=== PATIENT | male | born 1955 | race Caucasian/White ===

== ENCOUNTER 2018-12-05 18:00 | Emergency (ER) | payer OTHER, SELFPAY ==
[2018-12-05] VITALS (7 sets, daily range): BP systolic 134–165; BP diastolic 84–96; PULSE 56–78; RESP 14–25; TEMP 37.1; O2SAT 94–100
--- NOTE | 2018-12-05 18:29 | DI.RAD.S_ITS ---
PROCEDURE: XR CHEST 2V INDICATIONS: Irregular heart rate TECHNIQUE: 2 views of the chest were acquired. COMPARISON: None. FINDINGS: Surgical changes and devices: None. Lungs and pleura: Lungs are clear. No pleural effusions or pneumothorax. Mediastinum: Mediastinal contours are normal. Heart size is normal. Bones and chest wall: No suspicious bony abnormalities. Soft tissues appear unremarkable. IMPRESSION: Normal chest. Dictated by: Maggie Richard M.D. on 12/05/2018 at 19:59 Approved by: Maggie Richard M.D. on 12/05/2018 at 19:59
--- NOTE | 2018-12-05 19:05 | ED_ITS ---
HPI - Syncope General Chief Complaint: Syncope Stated Complaint: ABNORMAL EKG/SCIATIC NERVE PAIN Time Seen by Provider: 12/05/18 19:04 Source: patient Mode of arrival: ambulatory Limitations: no limitations History of Present Illness HPI narrative: Patient is a 63-year-old male who states that he has had a ?unexplained illness ?that he has had off and on over the past several years. He states that this illness causes him to lose his appetite and not want to eat. He went into a long description of how he has not eaten much over the past several days and weeks because he does not have any appetite. He states he has had miss work the past couple days because of not feeling well and not eating. He states that he went to work today when he was putting a tarp on a truck he had a sudden onset of fatigue. He did not lose consciousness. He was able to get off the truck without falling. He states when he got to the ground he became so fatigued that he could not get up. EMS was called. He stated that flora watson did an EKG and told him that he potentially had a heart attack in the past and that the left side of his heart was abnormal. He was not brought to the emergency department. He was told that if his symptoms worsened he needed to come to the ER for evaluation. He stated that since he lives on [address] he would come to the emergency department before going home. He brought a copy of the EKG that was done by EMS which shows LVH and Q-waves in lead V5 and V6 Related Data Home Medications Medication Instructions Recorded Confirmed famotidine [Pepcid] 40 mg PO #0 03/23/13 loperamide [Imodium A-D] 1 mg PO PRN PRN #0 07/31/16 Previous Rx's Medication Instructions Recorded diphenoxylate-atropine 1 tab PO Q4HP PRN #14 tab 07/31/16 ondansetron [Zofran ODT] 4 mg SUBLINGUAL Q6HP PRN #20 odt 07/31/16 meloxicam [Mobic] 15 mg PO DAILY #30 tab 12/05/18 Allergies Allergy/AdvReac Type Severity Reaction Status Date / Time amoxicillin [AMOXICILLIN] Allergy Intermediate Unverified 12/25/17 13:05 Penicillins [PENICILLINS] Allergy Intermediate Unverified 12/25/17 13:05 Review of Systems Constitutional Reports fatigue, Denies fever(s), Reports lethargy, Reports malaise, Reports poor appetite, Reports weakness and Reports weight loss ENT Ears, Nose, Mouth, and Throat: Denies vertigo and Denies dizziness Cardiovascular Denies chest pain, Denies palpitations and Denies dyspnea Respiratory Denies dyspnea and Denies wheezing Gastrointestinal Gastrointestinal: Denies change in stool character, Denies cramping, Denies diarrhea, Denies nausea and Denies vomiting Genitourinary Denies dysuria Musculoskeletal Reports back pain and Reports radiating pain into limb Integumentary/Breasts Denies lesions and Denies rash Neurologic Denies confusion, Denies vertigo, Denies dizziness, Reports radicular pain, Reports paresthesias and Reports weakness Psychiatric Denies confusion Endocrine Reports fatigue and Denies palpitations Hematologic/Lymphatic Denies easy bleeding and Denies easy bruising Allergic/Immunologic Denies wheezing PFSH Medical History Gastroesophageal reflux disease (Acute) Sciatica (Acute) Social History Smoking Status: Never smoker Social History Smoking Status: Never smoker Exam Initial Vital Signs Initial Vital Signs: Vital Signs Temperature 98.8 F 12/05/18 18:00 Pulse Rate 73 12/05/18 18:00 Respiratory Rate 16 12/05/18 18:00 Blood Pressure 165/96 H 12/05/18 18:00 Pulse Oximetry 98 12/05/18 18:00 Const General: cooperative, healthy appearing, comfortable, well developed, well groomed and No acute distress Orientation: alert, awake and oriented x3 HENMT Head: normal to inspection and normocephalic Resp Effort & Inspection: normal respiratory effort Auscultation: clear to auscultation bilaterally Cardio Rate: regular rate Rhythm: regular rhythm Pulses: radial pulses present GI Inspection: non-distended Palpation: soft, No firm and No tender Skin Lesions: no lesions Rashes: no rashes Neuro General: alert, awake and oriented x3 Cognition: normal cognition Speech: speech normal Gait: normal gait Motor: muscle tone normal throughout Sensory Exam: no sensory deficits noted Extrem General: normal to inspection and capillary refill normal Psych Appearance: grossly normal and well kempt Scores GCS [place] coma scale eye opening: Spontaneous Michael coma scale verbal response: Orientated [place] coma scale motor response: Obey commands Michael coma scale total score: 15 Course Orders Ordered: ED Orders 12/05/18 20:33 B Type Natriuretic Peptide Stat Complete Blood Count AUTO DIFF Stat Comprehensive Metabolic Panel Stat Lipase Stat Partial Thromboplastin Time Stat Prothrombin Time INR Stat Discontinued Medications Hydrocodone Bitart/Acetaminophen (Vicodin Prepack) 1 bottle MISC SEEINSTR ONE Stop: 12/05/18 21:50 Last Admin: 12/05/18 22:00 Dose: 1 bottle Ketorolac Tromethamine (Toradol) 30 mg IV NOW ONE Stop: 12/05/18 19:19 Last Admin: 12/05/18 20:28 Dose: 30 mg Vital Signs - 8 hr 12/05/18 20:30 12/05/18 21:00 12/05/18 21:45 Pulse Rate 63 56 L 61 Respiratory Rate 17 14 18 Blood Pressure Blood Pressure [Right Arm] 143/92 H 134/84 162/88 H Pulse Oximetry 100 94 99 12/05/18 21:55 Pulse Rate 67 Respiratory Rate 25 H Blood Pressure 162/88 H Blood Pressure [Right Arm] Pulse Oximetry 100 MDM - Syncope Lab Data Attestation: I reviewed the patient's lab results. Result diagrams: 12/05/18 20:33 12/05/18 20:33 Lab Results 12/05/18 12/05/18 12/05/18 Range/Units 20:33 20:33 20:33 WBC 11.1 H (4.5-11.0) X10^3/uL RBC 5.00 (4.5-5.9) X10^6/uL Hgb 15.5 (13.5-17.5) g/dL Hct 44.9 (41-53) % MCV 89.8 (80-100) fL MCH 31.0 (26-34) PG MCHC 34.5 (30-36) % RDW 12.3 (11.6-14.8) % Plt Count 307 (150-400) X10^3/uL Neut % (Auto) 76.1 H (50-75) % Lymph % (Auto) 12.4 L (25-40) % Fisher % (Auto) 10.7 (3-14) % Eos % (Auto) 0.6 L (2-4) % Baso % (Auto) 0.2 (0-2) % Neut # (Auto) 8400 H (0544-9448) /uL Lymph # (Auto) 1400 (5936-6496) /uL Fisher # (Auto) 1200 H (0-900) /uL Eos # (Auto) 100 (0-450) /uL Baso # (Auto) 0 (0-100) /uL PT 14.4 H (10.1-12.7) SECONDS INR 1.2 (0.9-1.3) APTT 29 (26.4-36.2) SECONDS Sodium 137 (137-145) mmol/L Potassium 3.3 L (3.4-5.1) mmol/L Chloride 98 (98-107) mmol/L Carbon Dioxide 27 (22-32) mmol/L BUN 28 H (9-20) mg/dL Creatinine 0.90 (0.66-1.25) mg/dL Estimated GFR > 60.0 (>60) mL/min BUN/Creatinine Ratio 31.1 H (6-22) Glucose 103 (80-110) mg/dL Calcium 9.5 (8.4-10.2) mg/dL Total Bilirubin 0.9 (0.2-1.3) mg/dL AST 18 (17-59) IU/L ALT 25 (21-72) IU/L Alkaline Phosphatase 53 (38-126) U/L Troponin I Cancelled B-Natriuretic Peptide < 100 (<100) Total Protein 7.3 (6.3-8.2) g/dL Albumin 4.4 (3.5-5.0) g/dL Globulin 2.9 (1.7-4.1) g/dL Albumin/Globulin Ratio 1.5 (1.0-2.8) Lipase 184 (23-300) U/L Imaging Data Chest x-ray: Radiologist's impression: [address] [address] XRay Report Signed Patient: Shashi Daily EMR#: [id number] : 5Acct:[id number] Age/Sex: 63 / MDate of Service: 12/05/18 Loc: ED Accession Number: [id number] Procedure: XR chest 2V Ordering Provider: Kulwinder Rolle D.O. PROCEDURE: XR CHEST 2V INDICATIONS: Irregular heart rate TECHNIQUE: 2 views of the chest were acquired. COMPARISON: None. FINDINGS: Surgical changes and devices: None. Lungs and pleura: Lungs are clear. No pleural effusions or pneumothorax. Mediastinum: Mediastinal contours are normal. Heart size is normal. Bones and chest wall: No suspicious bony abnormalities. Soft tissues appear unremarkable. IMPRESSION: Normal chest. Dictated by: Maggie Richard M.D. on 12/05/2018 at 19:59 Approved by: Maggie Richard M.D. on 12/05/2018 at 19:59 ECG Data Prior ECG tracings: available for review Interpretation: EKG from the EMS shows sinus rhythm with LVH and less than 1 mm Q-waves in V5 V6 EKG here in the emergency department shows sinus rhythm Ventricular rate is 72 Left axis deviation Normal QRS No Q-waves No ST T wave changes MDM Narrative Medical decision making narrative: Patient's labs are unremarkable. Informed him that he needed to talk with his primary doctor regarding his decreased appetite and to discuss the indications for referral to see Gastroenterology. He does have sciatica. He has had in the past. It appears that he is only occasionally taking anti-inflammatories. Will send home with prescription of Mobic. Inform him that he needed to take this on a regular basis with food. EKG here is unremarkable. We did discuss the changes that were on the EKG done by EMS. Low suspicion for ACS. Will hold on further workup for now. Patient was given return precautions. He expressed understanding and agreement with plan. Discharge Plan Departure Patient Disposition: Home Clinical Impression: Fatigue Qualifiers: Fatigue type: unspecified Qualified Code(s): R53.83 - Other fatigue Sciatica Qualifiers: Laterality: unspecified laterality Qualified Code(s): M54.30 - Sciatica, unspecified side Discharge Date/Time: 12/05/18 21:55 Interventions: ED Discharge Assessment Last Done: 12/05/18 21:55 Instructions: DI for Fatigue, Activity May Be Better then Rest for Low Back Pain Recovery, Exercise May Reduce Risk of Low Back Pain Activity Restrictions/Additional Instructions: I do recommend that on Saturday you contact your primary care doctor to discuss the indications for referral to see Gastroenterology and also a physician office specialist. Return to the emergency department for any new symptoms Prescriptions: New meloxicam [Mobic] 15 mg tablet 15 mg PO DAILY Qty: 30 RF: 0 No Action famotidine [Pepcid] 40 MG tablet 40 mg PO Qty: 0 RF: 0 loperamide [Imodium A-D] 1 MG/7.5 ML liquid 1 mg PO PRN PRNQty: 0 RF: 0 diphenoxylate-atropine 2.5 MG/0.025 MG tablet 1 tab PO Q4HP PRNQty: 14 RF: 0 ondansetron [Zofran ODT] 4 MG tablet,disintegrating 4 mg Sublingual Q6HP PRNQty: 20 RF: 0 Referrals: Timoteo Felton MD [Primary Care Provider] -
[2018-12-05] MEDS: KETOROLAC 60 MG/2 ML VIAL 30 MG IV (20:28)
[2018-12-05 20:50] LABS: INR 1.2 (0.9-1.3); Prothrombin Time 14.4 SECONDS (10.1-12.7)
[2018-12-05 20:53] LABS: PTT Partial Thromboplastin Tim 29 SECONDS (26.4-36.2)
[2018-12-05 20:55] LABS: Alanine Aminotransferase 25 IU/L (21-72); Albumin 4.4 g/dL (3.5-5.0); Albumin Globulin Ratio 1.5 (1.0-2.8); Alkaline Phosphatase 53 U/L (38-126); Aspartate Aminotransferase 18 IU/L (17-59); BUN Creatinine Ratio 31.1 (6-22); Bilirubin Total 0.9 mg/dL (0.2-1.3); Blood Urea Nitrogen 28 mg/dL (9-20); Calcium 9.5 mg/dL (8.4-10.2); Carbon Dioxide 27 mmol/L (22-32); Chloride 98 mmol/L (98-107); Estimated Glomerular Filt Rate > 60.0 mL/min (>60); Globulin 2.9 g/dL (1.7-4.1); Glucose 103 mg/dL (80-110); HEMOLYSIS < 15 (0-50); Lipase 184 U/L (23-300); Potassium 3.3 mmol/L (3.4-5.1); Sodium 137 mmol/L (137-145); Total Protein 7.3 g/dL (6.3-8.2)
[2018-12-05 21:10] LABS: B Type Natriuretic Peptide < 100 (<100)
[2018-12-05 21:29] LABS: Add Manual Diff / Slide Review NO; Basophils Absolute Auto 0 /uL (0-100); Basophils Percent Auto 0.2 % (0-2); Eosinophils Absolute Auto 100 /uL (0-450); Eosinophils Percent Auto 0.6 % (2-4); Hematocrit 44.9 % (41-53); Hemoglobin 15.5 g/dL (13.5-17.5); Lymphocytes Absolute Auto 1400 /uL (1100-4500); Lymphocytes Percent Auto 12.4 % (25-40); Mean Corpuscular HGB Conc 34.5 % (30-36); Mean Corpuscular Volume 89.8 fL (80-100); Monocytes Absolute Auto 1200 /uL (0-900); Monocytes Percent Auto 10.7 % (3-14); Neutrophils Absolute Auto 8400 /uL (1500-7000); Neutrophils Percent Auto 76.1 % (50-75); Platelet Count 307 X10^3/uL (150-400); Red Cell Distribution Width 12.3 % (11.6-14.8); White Blood Cell Count 11.1 X10^3/uL (4.5-11.0)
[2018-12-05] MEDS: HYDROCODONE/ACET 5/325 PREPACK 1 BOTTLE MISC (22:00)
== END 2018-12-05 21:55 | disposition home or self-care (01) ==
PROVIDERS: Emergency Provider Emergency Medicine; PCP Family Medicine
DX: M54.30 Sciatica, unspecified side (principal); R53.83 Other fatigue
CPT/HCPCS: 71046; 80053; 83690; 83880; 85025; 85610; 85730; 93005; 96374; 99283; 99285; J1885

== ENCOUNTER → 2022-02-19 13:35 | Outpatient (CLI) | payer MEDICARE, SELFPAY ==
[2022-02-19 19:24] LABS: Add Manual Diff / Slide Review NO; Basophils Absolute Auto 100 /uL (0-100); Basophils Percent Auto 0.5 % (0-2); Eosinophils Absolute Auto 0 /uL (0-450); Eosinophils Percent Auto 0.3 % (2-4); Hematocrit 43.9 % (41-53); Hemoglobin 14.8 g/dL (13.5-17.5); Lymphocytes Absolute Auto 700 /uL (1100-4500); Lymphocytes Percent Auto 6.4 % (25-40); Mean Corpuscular HGB Conc 33.7 % (30-36); Monocytes Absolute Auto 400 /uL (0-900); Monocytes Percent Auto 3.9 % (3-14); Neutrophils Absolute Auto 9800 /uL (1500-7000); Neutrophils Percent Auto 88.9 % (50-75); Platelet Count 257 X10^3/uL (150-400); Red Blood Cell Count 4.77 X10^6/uL (4.5-5.9); Red Cell Distribution Width 12.5 % (11.6-14.8)
[2022-02-19 19:36] LABS: Alanine Aminotransferase 20 IU/L (<50); Albumin 4.3 g/dL (3.5-5.0); Albumin Globulin Ratio 1.7 (1.0-2.8); Alkaline Phosphatase 66 U/L (38-126); Aspartate Aminotransferase 26 IU/L (17-59); BUN Creatinine Ratio 18.9 (6-22); Blood Urea Nitrogen 14 mg/dL (9-20); Calcium 9.2 mg/dL (8.4-10.2); Carbon Dioxide 23 mmol/L (22-32); Chloride 108 mmol/L (98-107); Estimated Glomerular Filt Rate > 60 mL/min (>60); Globulin 2.6 g/dL (1.7-4.1); Glucose 129 mg/dL (80-110); HEMOLYSIS 17 (0-50); Potassium 3.9 mmol/L (3.4-5.1); Sodium 140 mmol/L (137-145); Total Protein 6.9 g/dL (6.3-8.2)
== END ==
PROVIDERS: PCP Physician Assistant; Visit Provider Family Medicine
DX: R10.9 Unspecified abdominal pain (principal)
CPT/HCPCS: 80053; 85025; 87040

== ENCOUNTER → 2022-03-28 08:28 | Outpatient (CLI) | payer MEDICARE, SELFPAY ==
[2022-03-28 18:39] LABS: Add Manual Diff / Slide Review NO; Basophils Absolute Auto 0 /uL (0-100); Basophils Percent Auto 0.8 % (0-2); Eosinophils Absolute Auto 300 /uL (0-450); Eosinophils Percent Auto 4.7 % (2-4); Hematocrit 42.3 % (41-53); Hemoglobin 14.6 g/dL (13.5-17.5); Lymphocytes Absolute Auto 1100 /uL (1100-4500); Lymphocytes Percent Auto 19.9 % (25-40); Mean Corpuscular HGB Conc 34.6 % (30-36); Mean Corpuscular Hemoglobin 31.7 PG (26-34); Mean Corpuscular Volume 91.7 fL (80-100); Monocytes Absolute Auto 500 /uL (0-900); Monocytes Percent Auto 9.9 % (3-14); Neutrophils Absolute Auto 3500 /uL (1500-7000); Neutrophils Percent Auto 64.7 % (50-75); Platelet Count 209 X10^3/uL (150-400); Red Blood Cell Count 4.62 X10^6/uL (4.5-5.9); Red Cell Distribution Width 12.6 % (11.6-14.8); White Blood Cell Count 5.5 X10^3/uL (4.5-11.0)
[2022-03-29 04:33] LABS: Alanine Aminotransferase 15 IU/L (<50); Albumin 4.1 g/dL (3.5-5.0); Albumin Globulin Ratio 1.8 (1.0-2.8); Alkaline Phosphatase 60 U/L (38-126); Aspartate Aminotransferase 20 IU/L (17-59); BUN Creatinine Ratio 22.5 (6-22); Bilirubin Total 0.6 mg/dL (0.2-1.3); Blood Urea Nitrogen 20 mg/dL (9-20); Calcium 9.1 mg/dL (8.4-10.2); Carbon Dioxide 26 mmol/L (22-32); Chloride 109 mmol/L (98-107); Cholesterol 195 mg/dL (140-199); Estimated Glomerular Filt Rate > 60 mL/min (>60); Globulin 2.3 g/dL (1.7-4.1); Glucose 115 mg/dL (80-110); HDL Cholesterol 58 mg/dL (40-60); HEMOLYSIS < 15 (0-50); LDL Cholesterol Calculated 114 mg/dL (<100); Sodium 140 mmol/L (137-145); Total Protein 6.4 g/dL (6.3-8.2); Triglycerides 114 mg/dL (35-150)
[2022-03-29 05:05] LABS: Prostate Specific Antigen 20.7 ng/mL (0.10-4.00)
== END ==
PROVIDERS: PCP Physician Assistant; Visit Provider Physician Assistant
DX: Z87.898 Personal history of other specified conditions (principal); Z12.5 Encounter for screening for malignant neoplasm of prostate; Z13.220 Encounter for screening for lipoid disorders
CPT/HCPCS: 80053; 80061; 84153; 85025

== ENCOUNTER → 2022-05-07 11:52 | Outpatient (CLI) | payer MEDICARE, SELFPAY ==
--- NOTE | 2022-05-07 13:13 | DI.MRI.S_ITS ---
PROCEDURE: MR PELVIS WO/W CON INDICATIONS: PSA of 20 and abnormal prostate TECHNIQUE: Coronal HASTE, axial T1 FSE with fat saturation, 3-plane nonbreath-hold T2 FSE. After the administration of contrast, dynamic axial, delayed axial and coronal VIBE or 2-D FLASH with fat saturation through the pelvis. Optional diffusion weighted imaging and ADC may be performed. COMPARISON: CT abdomen pelvis 03/09/2019. FINDINGS: Image quality: Diffusion weighted and dynamic contrast enhanced images are diagnostic. Prostate: Gland size is 5.9 x 4.1 x 4.7 cm; ellipsoid gland volume is 59 mL. Lesion #1: Size: 1.2 x 0.7 centimeters Location: Right posterior medial/posterior lateral peripheral zone, mid gland (axial ADC series 24, image 18, high B value DWI series 23, image 66). T2 signal: Heterogeneous signal intensity DWI/ADC signal: Mildly hypointense on ADC images with corresponding mild DWI hyperintensity DCE: Suspected extracapsular extension posteriorly in the region of the neurovascular bundle (axial T2 series 4, image 18). KALPESH: Positive Seminal vesicle invasion: Absent PI-RADS: T2 signal - 3; ADC - 3; DCE - positive; Overall score: PI-RADS 4. Genitourinary system: Bladder wall thickness is normal. Distal ureters are non distended. Bowel and peritoneum: No pathologic free pelvic fluid. Inferior colon and small bowel loops are normal in caliber. Severe sigmoid colonic diverticulosis without MR evidence of acute diverticulitis. Nodes and vessels: No pelvic or inguinal adenopathy by size criteria. Iliac vessels are normal in caliber. Soft tissues: Bilateral fat containing inguinal hernias. Bones: No definite suspicious osseous lesion identified. Heterogeneous marrow signal about the pelvis could reflect some degree of red marrow reconversion. IMPRESSION: 1. A 1.2 centimeter lesion at the right peripheral zone, mid gland, is consistent with PI-RADS category 4. There is possible extracapsular extension posteriorly. 2. No suspicious lymph nodes identified within the abdomen or pelvis. Dictated by: Austin Díaz M.D. on 05/08/2022 at 8:09 Approved by: Austin Díaz M.D. on 05/08/2022 at 8:45
== END ==
PROVIDERS: PCP Physician Assistant; Referring Provider Urology; Visit Provider Urology
DX: N42.9 Disorder of prostate, unspecified (principal); R97.20 Elevated prostate specific antigen [PSA]; R00.1 Bradycardia, unspecified
CPT/HCPCS: 72197; 93246; A9579

== ENCOUNTER → 2022-05-07 13:24 | Outpatient (CLI) | payer MEDICARE, SELFPAY ==
--- NOTE | 2022-05-29 10:39 | PM.CARDMON.1 ---
Resolution Manager Report Referral & Results Date Patient Seen: 05/07/22 Requesting provider: Jennifer Hawkins Indication: bradycardia Duration of monitoring (days): 14 Diary information: There were no patient events to review Data: Minimum heart rate identified was 34 beats per minute at 05:03 on 05/21/2022 Maximum sinus heart rate was 142 beats per minute at 14:21 on 05/08/2022 Maximum overall heart rate as interpreted by the computer was 235 beats per minute this appears to be artifact rather than actual accelerated heart rate. Approximately 9.3% of identified beats were supraventricular ectopic in origin which would classify them as frequent Less than 1% of identified beats were ventricular ectopic in origin which would classify them as rare There were 5 runs nonsustained monomorphic ventricular tachycardia with the longest being an 8 beat run at average rate of 181 beats per minute There were 469 runs of SVT with the longest lasting 13.9 seconds There were no episodes of atrial fibrillation or pauses of 3 seconds or longer identified on this study Impression: 14 day satellite project site monitor demonstrating frequent PACs as well as occasional runs of SVT that were very brief in duration and the 5 runs of ventricular tachycardia as above Clinical correlation suggested
== END ==
PROVIDERS: PCP Physician Assistant; Referring Provider Physician Assistant; Visit Provider Physician Assistant
DX: R00.1 Bradycardia, unspecified (principal)
CPT/HCPCS: 93246; 93248

== ENCOUNTER → 2022-08-07 08:45 | Outpatient (CLI) | payer MEDICARE, SELFPAY ==
--- NOTE | 2022-08-07 | DI.CT.S_ITS ---
PROCEDURE: CT CHEST ABD PEL W CON INDICATIONS: PROSTATE CANCER TECHNIQUE: After the administration of oral and intravenous contrast, axial sections acquired from the supraclavicular neck to the pubic symphysis. Coronal and sagittal reformats were performed. For radiation dose reduction, the following was used: automated exposure control, adjustment of mA and/or kV according to patient size. COMPARISON: [facility], CT, CT ABDOMEN PELVIS WITH CONTRAST, 03/09/2019, 12:57. FINDINGS: Image quality: Excellent. CHEST: Lower Neck: No enlarged lymph nodes. Thyroid: Within normal limits. Axillae: No enlarged lymph nodes. Chest Wall: Unremarkable. Lungs and Airways: There is a 2 mm nodule in the right upper lobe (series 3, image 69). A 2 mm nodule is seen in the left lower lobe (series 3, image 211). No acute pulmonary opacities. Airways are patent. Pleura: No pneumothorax or pleural effusions. Heart: Heart size is normal. No pericardial effusion. Thoracic Vessels: The aorta and pulmonary arteries demonstrate normal size. Mediastinum and Nadege: No enlarged mediastinal or hilar lymph node. Esophagus: No wall thickening. There is a small hiatal hernia. ABDOMEN: Liver: Unremarkable. Gallbladder: Gallbladder is normal. Biliary ducts: Unremarkable. Pancreas: Unremarkable. Spleen: Unremarkable. Adrenal Glands: Unremarkable. Kidneys and Ureters: Unremarkable. Stomach and Bowel: Stomach, small bowel loops, and colon are normal in caliber. Diverticulosis. No acute diverticulitis. Moderate amount of stool in colon. Peritoneum: Mild omental stranding. No abnormal intraperitoneal fluid. No free air. Ventral Wall: No hernia. Abdominal Nodes: No retroperitoneal or mesenteric adenopathy by size criteria. There are numerous slightly prominent mesenteric lymph nodes, which is nonspecific. Vessels: Aorta and inferior vena cava are normal in size. PELVIS: Pelvic Organs: Prostate is enlarged. Bladder: Bladder wall is thickened. Pelvic Nodes: There is a 1 cm left common iliac lymph node (series 2, image 92). Miscellaneous: Bilateral fat containing inguinal hernias are seen. Bones: Mild degenerative changes in thoracic and lumbar spine. IMPRESSION: 1. Prostate is enlarged. 2. There is bladder wall thickening, which may be secondary to bladder outlet obstruction or cystitis. Recommend clinical correlation. 3. A 1 cm left common iliac lymph node, indeterminate. Recommend close imaging follow-up. 4. Small lung nodules are present bilaterally. Recommend a short-term follow-up CT in 3 months. 5. Diverticulosis without diverticulitis. 6. Small hiatal hernia. 7. Bilateral fat containing inguinal hernias. Dictated by: Perry John M.D. on 08/07/2022 at 11:43 Approved by: Perry John M.D. on 08/07/2022 at 12:00
--- NOTE | 2022-08-07 08:47 | DI.NM.S_ITS ---
PROCEDURE: NM BONE SCAN WHOLE BODY RADIOPHARMACEUTICAL: 19.5 mCi Tc-99m MDP IV. INDICATIONS: New diagnosis prostate cancer TECHNIQUE: Delayed whole-body scintigrams were obtained approximately 3-4 hours after intravenous injection of radiotracer. Anterior and posterior views were acquired from vertex to feet. Additional left and right oblique views of the pelvis were obtained. COMPARISON: [facility], CT, CT CHEST ABD PEL W CON, 08/07/2022, 9:47. FINDINGS: No lesions are identified in skull, sternum, clavicles, scapulae, ribs, bony pelvis, and visualized shafts of the long bones. There are foci of increased uptake in cervical, thoracic and lumbar spine most likely secondary to degenerative disc and facet disease; early metastasis to spine could be obscured by degenerative changes. There are foci of increased periarticular activity involving, most severe in left knee, compatible with degenerative/arthritic changes. IMPRESSION: 1. No definitive scintigraphic findings to suggest osseous metastasis. 2. Increased activity in spine is most likely degenerative in nature. Recommend radiographic correlation. 3. Foci of increased periarticular activity, most severe in left knee, compatible with degenerative/arthritic changes. Recommend radiographic correlation. Dictated by: Perry John M.D. on 08/07/2022 at 14:30 Approved by: Perry John M.D. on 08/07/2022 at 14:33
[2022-08-07 09:33] LABS: Estimated Glomerular Filt Rate > 60 mL/min (>60)
== END ==
PROVIDERS: Specialist; PCP Physician Assistant; Referring Provider Urology; Visit Provider Urology
DX: C61 Malignant neoplasm of prostate (principal); R91.8 Other nonspecific abnormal finding of lung field; K44.9 Diaphragmatic hernia without obstruction or gangrene; K57.90 Diverticulosis of intestine, part unspecified, without perforation or abscess without bleeding; K40.20 Bilateral inguinal hernia, without obstruction or gangrene, not specified as recurrent
CPT/HCPCS: 36415; 71260; 74177; 78306; 82565; A9503; Q9967

== ENCOUNTER → 2022-08-21 13:09 | Outpatient (CLI) | payer MEDICARE, SELFPAY ==
--- NOTE | 2022-08-21 13:10 | DI.ECHO.S_ITS ---
[facility]---------+ [facility] +---------+ : : [address] [place] : : : : [id number] : : : : Phone: [phone]+ Echocardiogram Report + + :Name: JACK BOSS Study Date: 08/21/2022 Height: 72 in : :[facility] ReadingLocation: Weight: 200 lb : : Gender: Male BSA: 2.1 m2 : :: 1955 Age: 67 yrs BP: 131/81 mmHg: :Reason For Study: TACHYCARDIA : :Ordering Physician: DIXON, : :REID Performed By: Amisha Sepulveda : :Referring: REID INIGUEZ : + + Interpretation Summary 1) Normal left ventricular thickness, size, wall motion, and systolic function (EF 60-65%). 2) Mildly increased right ventricular size with normal function. 3) No significant valvular abnormalities. 4) No prior Echo available for comparison. Procedure: A two-dimensional transthoracic echocardiogram with color flow and Doppler was performed. The study quality was technically adequate. There is no prior echocardiogram noted for this patient. The patient was in sinus bradycardia with heart rates between 52-64 bpm during the exam. Left Ventricle: The left ventricle is normal in size and wall thickness. The ejection fraction is estimated to be 60-65%. Left ventricular systolic function appears normal without focal wall motion abnormalities. Diastolic parameters suggest a relaxation abnormality of the left ventricle, consistent with probable normal filling pressures. Right Ventricle: The right ventricle is mildly dilated. The right ventricular systolic function is normal. Atria: The left atrium is moderately dilated. The right atrium is mildly dilated. There is no Doppler evidence for an interatrial shunt. Mitral Valve: The mitral valve is normal in structure and function. There is trace mitral regurgitation. Aortic Valve: The aortic valve is trileaflet. The aortic valve opens well. There is no aortic valve stenosis. No aortic regurgitation is present. Tricuspid Valve: The tricuspid valve is normal in structure and function. There is mild tricuspid regurgitation. The right ventricular systolic pressure is estimated to be at least 20 mmHg based on an estimated right atrial pressure of 3 mm Hg. Pulmonic Valve: The pulmonic valve leaflets are thin and pliable; valve motion is normal. There is trace pulmonic regurgitation. Great Vessels: The aortic root is normal size. The ascending aorta is at the upper limits of normal in size. The IVC is of normal diameter and collapses greater than 50% with a sniff. This suggests a low right atrial pressure of 3 mm Hg. Pericardium/ Pleura There is no pericardial effusion. There is no pleural effusion. MMode/2D Measurements & Calculations LVIDd: 5.6 cm LVOT diam: 2.2 cm LVIDs: 3.5 cm Ao root diam: 3.2 cm FS: 38.2 % asc Aorta Diam: 3.9 cm IVSd: 1.0 cm Ao Arch Diam (Prox Trans): 3.2 cm LVPWd: 1.0 cm LV alberto. diameter/BSA (cm/m^2): 2.6 LV sys. diameter/BSA (cm/m^2): 1.6 LA A2 area: 26.4 cm2 RA long axis: 5.6 cm LA A4 area: 26.5 cm2 RA area: 22.1 cm2 LA length (vol): 6.2 cm RA vol: 73.7 ml LA vol: 95.8 ml RA : 34.6 ml/m2 LA vol index: 45.0 ml/m2 IVC diam: 1.6 cm RVD1 (basal): 4.4 cm RVD2 (mid): 4.0 cm TAPSE: 2.4 cm Doppler Measurements & Calculations Ao V2 max: 181.7 cm/sec LVOT Max Augusto: 107.0 cm/sec Ao V2 mean: 123.6 cm/sec LV V1 max P.6 mmHg Ao max P.2 mmHg LV V1 VTI: 22.3 cm Ao mean P.9 mmHg JAIME(I,D): 2.3 cm2 Ao V2 VTI: 38.6 cm JAIME(V,D): 2.3 cm2 sev ratio: 0.58 JAIME indexed to BSA (cm^2/m^2): 1.1 MV E max augusto: 72.5 cm/sec TR max augusto: 206.2 cm/sec MV A max augusto: 90.6 cm/sec TR max P.0 mmHg MV E/A: 0.80 PA V2 max: 102.5 cm/sec Med Peak E' Augusto: 7.8 cm/sec PA V2 mean: 70.6 cm/sec E/E' med: 9.2 PA mean P.3 mmHg Lat Peak E' Augusto: 11.6 cm/sec PA pr(Accel): 13.9 mmHg E/E' lat: 6.2 E/e' average: 7.7 MV dec time: 0.27 sec SV(LVOT): 88.0 ml Reading Physician:07:19 PM
== END ==
PROVIDERS: PCP Physician Assistant; Referring Provider Internal Medicine Cardiovascular Disease; Visit Provider Internal Medicine Cardiovascular Disease
DX: I07.1 Rheumatic tricuspid insufficiency (principal); I47.29 Other ventricular tachycardia
CPT/HCPCS: 93306

== ENCOUNTER → 2022-09-18 13:09 | Outpatient (CLI) | payer MEDICARE, SELFPAY ==
[2022-09-18 15:27] LABS: COVID19 -Nasal RAPID Negative (Negative)
--- NOTE | 2022-09-18 19:27 | DI.NM.S_ITS ---
DATE OF SERVICE: 09/18/2022 PROCEDURE: Exercise stress test. INDICATION: Nonsustained ventricular tachycardia on Holter monitor, as well as atrial tachycardia, hyperlipidemia. EXERCISE STRESS TEST: The patient walked on Marlo protocol for 5 minutes and 53 seconds and achieved 97 percent of target heart rate. DOMINIC positive 17 percent. 7 METs of workload. Resting blood pressure 128/78 and heart rate 49 with sinus bradycardia. During exercise, patient has intermittent PVCs, including ventricular quadrigeminy. However, at peak exercise, it did not get worse. It reappeared in recovery. Mostly isolated monomorphic PVCs. In recovery, patient has some isolated PACs, as well. No sustained ventricular tachycardia or atrial fibrillation. Peak blood pressure 192/100 mmHg. During baseline, no obvious ischemic changes. As well as during stress, no obvious ischemic changes. CONCLUSION: Exercise stress test is negative for inducible ischemia. Normal blood pressure response, except that diastolic blood pressure increased up to 100 mmHg. The patient achieved 97 percent of target heart rate. No anginal symptoms, however felt leg pain. Diminished exercise tolerance. Intermittent monomorphic isolated premature ventricular contractions during exercise, which did not get worse at peak. No ventricular tachycardia. Correlate clinically. Not a high-risk exercise stress test. Shashi Daily - Herrera/meri doc#: [id number]/job#: [id number] dd: 09/18/2022 17:25:00 dt: 09/18/2022 19:00:00 DICTATING /COPIES TO: Dre Selby MD COPIES MNE: TWILA;
== END ==
PROVIDERS: PCP Physician Assistant; Referring Provider Internal Medicine Cardiovascular Disease; Visit Provider Internal Medicine Cardiovascular Disease
DX: I47.29 Other ventricular tachycardia (principal); I49.1 Atrial premature depolarization; E78.5 Hyperlipidemia, unspecified; Z20.822 Contact with and (suspected) exposure to COVID-19
CPT/HCPCS: 87635; 93017

== ENCOUNTER → 2022-11-29 10:36 | Outpatient (CLI) | payer MEDICARE, SELFPAY ==
[2022-11-30 09:51] LABS: Prostate Specific Antigen 15.6 ng/mL (0.10-4.00)
== END ==
PROVIDERS: PCP Physician Assistant; Referring Provider Urology; Visit Provider Urology
DX: C61 Malignant neoplasm of prostate (principal)
CPT/HCPCS: 36415; 84153

== ENCOUNTER → 2023-01-07 10:06 | Outpatient (CLI) | payer MEDICARE, SELFPAY ==
[2023-01-07 20:54] LABS: Prostate Specific Antigen 9.66 ng/mL (0.10-4.00)
== END ==
PROVIDERS: PCP Physician Assistant; Visit Provider Urology
DX: C61 Malignant neoplasm of prostate (principal)
CPT/HCPCS: 84153

== ENCOUNTER → 2023-04-10 11:48 | Outpatient (CLI) | payer MEDICARE, SELFPAY ==
[2023-04-10 22:47] LABS: Prostate Specific Antigen 3.47 ng/mL (0.10-4.00)
== END ==
PROVIDERS: PCP Physician Assistant; Visit Provider Urology
DX: R97.20 Elevated prostate specific antigen [PSA] (principal)
CPT/HCPCS: 84153

== ENCOUNTER → 2023-06-17 09:11 | Outpatient (CLI) | payer OTHER, SELFPAY ==
[2023-06-17 20:22] LABS: Prostate Specific Antigen 3.31 ng/mL (0.10-4.00)
== END ==
PROVIDERS: PCP Physician Assistant; Visit Provider Radiology Radiation Oncology
DX: C61 Malignant neoplasm of prostate (principal)
CPT/HCPCS: 84153

== ENCOUNTER → 2023-07-16 09:57 | Outpatient (CLI) | payer OTHER, SELFPAY ==
[2023-07-16 20:12] LABS: Prostate Specific Antigen 2.41 ng/mL (0.10-4.00)
[2023-07-19 07:10] LABS: PSA Free % 7.6 % (.); PSA, Total 2.1 ng/mL (0.0-4.0)
== END ==
PROVIDERS: Urology; PCP Physician Assistant; Visit Provider Physician Assistant
DX: C61 Malignant neoplasm of prostate (principal); R97.20 Elevated prostate specific antigen [PSA]
CPT/HCPCS: 84153; 84154

== ENCOUNTER → 2023-09-11 08:24 | Outpatient (CLI) | payer MEDICARE, SELFPAY ==
[2023-09-11 19:54] LABS: Prostate Specific Antigen 2.08 ng/mL (0.10-4.00)
== END ==
PROVIDERS: PCP Physician Assistant; Visit Provider Urology
DX: C61 Malignant neoplasm of prostate (principal)
CPT/HCPCS: 84153

== ENCOUNTER → 2023-10-16 10:44 | Outpatient (CLI) | payer MEDICARE, OTHER, SELFPAY ==
[2023-10-16 21:06] LABS: Prostate Specific Antigen 1.92 ng/mL (0.10-4.00)
== END ==
PROVIDERS: PCP Physician Assistant; Visit Provider Urology
DX: C61 Malignant neoplasm of prostate (principal)
CPT/HCPCS: 84153

== ENCOUNTER → 2023-12-12 11:57 | Outpatient (CLI) | payer MEDICARE, SELFPAY ==
[2023-12-12 20:44] LABS: Add Manual Diff / Slide Review NO; Basophils Absolute Auto 100 /uL (0-100); Basophils Percent Auto 1.1 % (0-2); Eosinophils Absolute Auto 200 /uL (0-450); Eosinophils Percent Auto 3.8 % (2-4); Hematocrit 39.4 % (41-53); Hemoglobin 13.8 g/dL (13.5-17.5); Lymphocytes Absolute Auto 600 /uL (1100-4500); Lymphocytes Percent Auto 11.9 % (25-40); Mean Corpuscular Hemoglobin 32.5 PG (26-34); Mean Corpuscular Volume 92.9 fL (80-100); Monocytes Absolute Auto 600 /uL (0-900); Monocytes Percent Auto 10.5 % (3-14); Neutrophils Absolute Auto 3900 /uL (1500-7000); Neutrophils Percent Auto 72.7 % (50-75); Platelet Count 215 X10^3/uL (150-400); Red Blood Cell Count 4.25 X10^6/uL (4.5-5.9); Red Cell Distribution Width 12.6 % (11.6-14.8); White Blood Cell Count 5.3 X10^3/uL (4.5-11.0)
[2023-12-12 20:46] LABS: Alanine Aminotransferase 19 IU/L (<50); Albumin Globulin Ratio 1.4 (1.0-2.8); Alkaline Phosphatase 79 U/L (38-126); Aspartate Aminotransferase 31 IU/L (17-59); BUN Creatinine Ratio 26.7 (6-22); Bilirubin Total 0.7 mg/dL (0.2-1.3); Blood Urea Nitrogen 20 mg/dL (9-20); Calcium 9.3 mg/dL (8.4-10.2); Carbon Dioxide 25 mmol/L (22-32); Chloride 109 mmol/L (98-107); Estimated Glomerular Filt Rate > 60 mL/min (>60); Globulin 2.8 g/dL (1.7-4.1); Glucose 99 mg/dL (80-110); HEMOLYSIS 22 (0-50); Potassium 3.8 mmol/L (3.4-5.1); Sodium 138 mmol/L (137-145); Total Protein 6.8 g/dL (6.3-8.2)
[2023-12-12 21:16] LABS: Prostate Specific Antigen 1.51 ng/mL (0.10-4.00)
[2023-12-12 21:19] LABS: Testosterone 9.36 ng/dL (71.8-623)
== END ==
PROVIDERS: PCP Physician Assistant; Visit Provider Internal Medicine Hematology & Oncology
DX: C61 Malignant neoplasm of prostate (principal)
CPT/HCPCS: 80053; 84153; 84403; 85025

== ENCOUNTER → 2024-01-01 11:44 | Outpatient (CLI) | payer MEDICARE, SELFPAY ==
--- NOTE | 2024-01-01 11:46 | DI.RAD.S_ITS ---
PROCEDURE: XR DEXA AXIAL SKELETON INDICATIONS: Androgen deprivation therapy rule out osteopenia or osteopor COMPARISON: None. FINDINGS: Lumbar Spine: Bone mineral density 0.963 g/cm2, T score -0.8. Left Hip: Bone mineral density 0.783 g/cm2, T score -1.3. Left Femoral Neck: Bone mineral density 0.587 g/cm2, T score -2.4. Right Hip: Bone mineral density 0.908 g/cm2, T score -0.3. Right Femoral Neck: Bone mineral density 0.716 g/cm2, T score -1.2. Fracture Risk Calculation (when applicable): 10-year fracture risk of a major osteoporotic fracture 10% and of a hip fracture 3.3%. (T score greater or equal to -1.0 to: NORMAL) (T score from -1.1 to -2.4: OSTEOPENIA) (T score less than or equal to -2.5: OSTEOPOROSIS) IMPRESSION: Osteopenia. Dictated by: Abel Pyle M.D. on 01/02/2024 at 11:22 Approved by: Abel Pyle M.D. on 01/02/2024 at 11:24
== END ==
LOC: RAD 11:44
PROVIDERS: PCP Physician Assistant; Referring Provider Urology; Visit Provider Urology
DX: M85.89 Other specified disorders of bone density and structure, multiple sites (principal); C61 Malignant neoplasm of prostate; Z79.818 Long term (current) use of other agents affecting estrogen receptors and estrogen levels
CPT/HCPCS: 77080

== ENCOUNTER → 2024-01-15 11:31 | Outpatient (CLI) | payer MEDICARE, SELFPAY ==
[2024-01-15 20:22] LABS: Prostate Specific Antigen 1.26 ng/mL (0.10-4.00)
== END ==
PROVIDERS: PCP Physician Assistant; Visit Provider Urology
DX: C61 Malignant neoplasm of prostate (principal)
CPT/HCPCS: 84153

== ENCOUNTER → 2024-01-17 11:24 | Outpatient (CLI) | payer MEDICARE, SELFPAY ==
[2024-01-17 14:58] LABS: Vitamin D 25 Hydroxy (D3) 27.5 ng/mL (30.0-100.0)
== END ==
PROVIDERS: PCP Physician Assistant; Referring Provider Urology; Visit Provider Urology
DX: M85.80 Other specified disorders of bone density and structure, unspecified site (principal)
CPT/HCPCS: 36415; 82306

== ENCOUNTER → 2024-02-04 10:32 | Outpatient (CLI) | payer MEDICARE, SELFPAY ==
[2024-02-04 20:13] LABS: Prostate Specific Antigen 0.969 ng/mL (0.10-4.00)
== END ==
PROVIDERS: PCP Physician Assistant; Visit Provider Radiology Radiation Oncology
DX: C61 Malignant neoplasm of prostate (principal)
CPT/HCPCS: 84153

== ENCOUNTER → 2024-04-13 14:15 | Outpatient (CLI) | payer MEDICARE, SELFPAY ==
[2024-04-13 20:54] LABS: Vitamin D 25 Hydroxy (D3) 24.4 ng/mL (30.0-100.0)
[2024-04-13 21:08] LABS: Prostate Specific Antigen 0.792 ng/mL (0.10-4.00)
== END ==
PROVIDERS: PCP Physician Assistant; Visit Provider Urology
DX: C61 Malignant neoplasm of prostate (principal); M85.852 Other specified disorders of bone density and structure, left thigh; Z79.818 Long term (current) use of other agents affecting estrogen receptors and estrogen levels
CPT/HCPCS: 82306; 84153

== ENCOUNTER → 2024-07-17 14:04 | Outpatient (CLI) | payer MEDICARE, SELFPAY ==
[2024-07-17 20:29] LABS: Vitamin D 25 Hydroxy (D3) 50.1 ng/mL (30.0-100.0)
[2024-07-17 20:47] LABS: Prostate Specific Antigen 0.482 ng/mL (0.10-4.00)
== END ==
PROVIDERS: PCP Physician Assistant; Referring Provider Urology; Visit Provider Urology
DX: R79.89 Other specified abnormal findings of blood chemistry (principal); C61 Malignant neoplasm of prostate; M85.80 Other specified disorders of bone density and structure, unspecified site
CPT/HCPCS: 82306; 84153

== ENCOUNTER → 2024-10-19 14:31 | Outpatient (CLI) | payer MEDICARE, OTHER, SELFPAY ==
[2024-10-19 20:25] LABS: Prostate Specific Antigen 0.325 ng/mL (0.10-4.00)
== END ==
PROVIDERS: PCP Physician Assistant; Visit Provider Urology
DX: C61 Malignant neoplasm of prostate (principal); R39.9 Unspecified symptoms and signs involving the genitourinary system
CPT/HCPCS: 84153

== ENCOUNTER 2024-11-27 17:12 | Emergency (ER) | payer OTHER, SELFPAY ==
[2024-11-27 17:17] VITALS: BP 137/81; PULSE 65; RESP 16; TEMP 36.6; O2SAT 98; BMI 24.4
--- NOTE | 2024-11-27 17:23 | DI.RAD.S_ITS ---
PROCEDURE: XR WRIST LT MIN 3V INDICATIONS: trauma/ refigerator fell on pt's arm TECHNIQUE: For views of the wrist were acquired. COMPARISON: None. FINDINGS: Bones: No fractures or dislocations. Mild osteoarthritic changes in left wrist joints are seen. No suspicious bony lesions. Soft tissues: No suspicious soft tissue calcifications. IMPRESSION: No acute left wrist fracture or dislocation. Mild wrist joint osteoarthritis. Dictated by: Dar Singh M.D. on 11/27/2024 at 18:11 Approved by: Dar Singh M.D. on 11/27/2024 at 18:12
--- NOTE | 2024-11-27 17:23 | DI.RAD.S_ITS ---
PROCEDURE: XR FOREARM LT 2V INDICATIONS: trauma/refrigerator fell on pt's arm TECHNIQUE: 2 views of the forearm were acquired. COMPARISON: None. FINDINGS: Bones: No fractures or dislocations. No suspicious bony lesions. Soft tissues: No suspicious soft tissue calcifications or masses. IMPRESSION: No acute forearm fracture or dislocation. No gross soft tissue abnormalities. Dictated by: Dar Singh M.D. on 11/27/2024 at 18:10 Approved by: Dar Singh M.D. on 11/27/2024 at 18:11
[2024-11-27] MEDS: HYDROCODONE/ACET 5/325 TABLET 1 TAB PO (18:35)
[2024-11-27] MEDS: IBUPROFEN 400 MG TABLET 600 MG PO (18:35)
--- NOTE | 2024-11-27 18:46 | ED_ITS ---
<Statement entered by Surya Stacy DO - 11/27/24 19:16> Dr. Stacy: I was immediately available in the department for consultation. I did not actually see the patient. HPI - Extremity Injury (Upper) General Chief Complaint: Extremity Injury, Upper Stated Complaint: arm injury Time Seen by Provider: 11/27/24 17:32 History of Present Illness HPI narrative: Mr. Daily is a very pleasant right hand dominant 69-year-old gentleman with a past medical history of prostate cancer, osteopenia who presents to the emergency department for left forearm pain after a crush injury that occurred at work. 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 He arrived in the emergency department with his arm splinted in a sling with a towel. There is swelling to the dorsal lateral aspect of his left forearm. He denies pain of the elbow, upper arm. No other areas of the body were affected by the refrigerator. He did not fall or hit his head. Still has full range of motion and flexion of his wrist and hand. No blood thinners. Related Data Home Medications Medication Instructions Recorded Confirmed rosuvastatin 5 mg tablet 5 mg PO DAILY 11/27/22 11/05/24 ciprofloxacin HCl 500 mg tablet 500 mg PO BID PRN 09/18/23 11/05/24 metronidazole 500 mg tablet 500 mg PO BID PRN 09/18/23 11/05/24 metoprolol succinate 25 mg 25 mg PO DAILY 03/04/24 11/05/24 tablet,extended release 24 hr losartan 50 mg tablet 50 mg PO DAILY 07/15/24 11/05/24 cholecalciferol (vitamin D3) 50 50 mcg PO DAILY 11/05/24 11/05/24 mcg (2,000 unit) capsule Previous Rx's Medication Instructions Recorded tamsulosin 0.4 mg capsule 0.8 mg (2 x 0.4 mg) PO DAILY #180 04/22/24 caps Allergies Allergy/AdvReac Type Severity Reaction Status Date / Time amoxicillin [AMOXICILLIN] Allergy Intermediate Verified 07/15/24 09:28 ampicillin Allergy Intermediate Rash Verified 11/05/24 13:16 Penicillins [PENICILLINS] Allergy Intermediate Verified 07/15/24 09:28 munoz pepper AdvReac Unknown Vomiting Verified 11/27/24 18:28 Review of Systems Review of Systems ROS Unobtainable: All systems reviewed & are unremarkable except as noted in HPI and below Patient History Medical History Low vitamin D level Osteopenia Encounter for monitoring androgen deprivation therapy History of external beam radiation therapy Nocturia Prostate cancer Lower urinary tract symptoms Diverticular disease History of asthma Sciatica Gastroesophageal reflux disease Surgical History Hx of vasectomy Hx of circumcision Family History Father Cancer Social History marital status: unmarried,single number of children: 1 Smoking Status: Never smoker alcohol intake: current caffeine: Yes Type(s) of exercise: walking frequency: 3-4 times per week duration: > 90 minutes/day Smoking Status: Never smoker alcohol intake frequency: a few times a month Exam Narrative Exam Narrative: GENERAL: 69 year old patient appears stated age. Well-developed patient, in no acute distress. HEAD: Atraumatic. Normocephalic. NECK: Trachea midline. Cervical ROM intact. CARDIOVASCULAR: Regular rate RESPIRATORY: ?Nonlabored respirations. ?Speaking in clear, full sentences. EXTREMITIES: Left arm: On the dorsal/lateral aspect of the left forearm there is swelling. No obvious bony deformities. Tenderness to palpation of mid left forearm. No overlying lacerations or bruising. Full flexion-extension of left elbow, pronation supination intact. No focal tenderness to palpation of left wrist, snuffbox, or phalanx pain. Sensation intact to light touch in the distribution of the median, radial, ulnar nerves bilaterally, and strong radial pulses and brisk capillary refill. NEURO: AOx3. ?Clear speech. ? SKIN: No rash or erythema of visible areas Initial Vital Signs Initial Vital Signs: Vital Signs Temperature 97.8 F 11/27/24 17:17 Pulse Rate 65 11/27/24 17:17 Respiratory Rate 16 11/27/24 17:17 Blood Pressure 137/81 11/27/24 17:17 Pulse Oximetry 98 11/27/24 17:17 Oxygen Delivery Method Room Air 11/27/24 17:17 Course Orders Ordered: ED Orders 11/27/24 17:23 XR forearm LT 2V Stat XR wrist LT min 3V Stat Discontinued Medications Hydrocodone Bitart/Acetaminophen (Hydrocodone/Acet 5/325 Tablet) 1 tab PO NOW ONE Stop: 11/27/24 18:28 Last Admin: 11/27/24 18:35 Dose: 1 tab Documented By: NILO Ibuprofen (Ibuprofen 400 Mg Tablet) 600 mg PO NOW ONE Stop: 11/27/24 18:28 Last Admin: 11/27/24 18:35 Dose: 600 mg Documented By: NILO Vital Signs Vital signs: Vital Signs - 8 hr 11/27/24 17:17 Temperature 97.8 F Pulse Rate 65 Respiratory Rate 16 Blood Pressure 137/81 Pulse Oximetry 98 Oxygen Delivery Method Room Air MDM - Extremity Injury (Upper) Medical Records Attestation: I reviewed the patient's medical records. Imaging Data Left Forearm X-Ray: Radiologist's Impression: PROCEDURE: XR FOREARM LT 2V INDICATIONS: trauma/refrigerator fell on pt's arm TECHNIQUE: 2 views of the forearm were acquired. COMPARISON: None. FINDINGS: Bones: No fractures or dislocations. No suspicious bony lesions. Soft tissues: No suspicious soft tissue calcifications or masses. IMPRESSION: No acute forearm fracture or dislocation. No gross soft tissue abnormalities. Left Wrist X-Ray: Radiologist's Impression: PROCEDURE: XR FOREARM LT 2V INDICATIONS: trauma/refrigerator fell on pt's arm TECHNIQUE: 2 views of the forearm were acquired. COMPARISON: None. FINDINGS: Bones: No fractures or dislocations. No suspicious bony lesions. Soft tissues: No suspicious soft tissue calcifications or masses. IMPRESSION: No acute forearm fracture or dislocation. No gross soft tissue abnormalities. [facility] Narrative Medical decision making narrative: 69-year-old gentleman with a past medical history of prostate cancer, osteopenia who presents to the emergency department for left forearm pain after a crush injury that occurred at work. Differential diagnosis includes but is not limited to crush injury, hematoma, contusion, fracture, sprain, strain, etc. On exam the patient is in no acute distress, nontoxic appearing, vital signs appropriate. Left arm is neurovascularly intact. No obvious deformities. There is tenderness and swelling on mid dorsal aspect of the left forearm. X- ray wrist and forearm obtained, no gross fractures visualized at bedside. We will treat pain with the hydrocodone and ibuprofen, patient has a ride home. X-ray negative for fractures or dislocations. He does have some osteoarthritis of the left wrist. He was placed into a left arm Rohan wrap for support and recommended rice therapy in addition ibuprofen and acetaminophen. Advised he follow up with PCP but also provided him phone number for Orthopedics office if needed for persistent pain. ED return precautions discussed. He verbalized understanding of all information is agreeable with the plan. He is stable for discharge home. Discharge Plan Departure Patient Disposition: Home Clinical Impression: Crushing injury of forearm, left Qualifiers: Encounter type: initial encounter Qualified Code(s): S57.82XA - Crushing injury of left forearm, initial encounter Contusion of forearm, left Qualifiers: Encounter type: initial encounter Qualified Code(s): S50.12XA - Contusion of left forearm, initial encounter Instructions: DI for Crush Injury Activity Restrictions/Additional Instructions: Dear Mr. Daily, Thank you for coming to the emergency department. Today you were evaluated for left forearm pain after a refrigerator crushed your arm. X-ray of your left arm was obtained and reveal no fractures or dislocations. You are likely suffering from a contusion/hematoma from the injury. Please use RICE therapy for your pain in addition to ibuprofen/acetaminophen. Rest the painful area. Ice the area of pain/swelling for at least 15 minutes, 4x a day. Compress the area of swelling using a brace, wrap, or splint if applied. Elevate the painful or swollen extremity by supporting it above the level of the heart with pillows when sitting or laying. Please take Ibuprofen (Motrin/Advil) or Acetaminophen (Tylenol) for pain. These are available over the counter. You may take Ibuprofen 600 mg every 8 hours with food for pain. You may also take Acetaminophen 650 mg every 4-6 hours for pain. Do not exceed 3000 mg of Tylenol a day as this can cause liver damage. Do not drink alcohol with either of these medications. X-rays do not rule out injuries to important ligaments, tendons, soft tissues, so it is important that if you have persistent pain to follow up with your primary care doctor or orthopedic doctor for further evaluation. You may call to schedule an appointment with [facility] at [phone] if needed. Please follow up with your primary care doctor within the next 2-3 days for ER follow-up. (If you do not have a PCP you can call [phone]. ?to schedule an appointment with an [facility] Primary Care Provider) IF YOU DEVELOP ANY NEW OR WORSENING SYMPTOMS, RETURN TO THE ER! Please read the attached instructions, they highlight more specific treatments and interventions for you at home. Thank you for letting me participate in your care, Priti Diaz PA-C Prescriptions: No Action tamsulosin 0.4 mg capsule 0.8 mg PO DAILY Qty: 180 3RF rosuvastatin 5 mg tablet 5 mg PO DAILY metoprolol succinate 25 mg tablet extended release 24 hr 25 mg PO DAILY losartan 50 mg tablet 50 mg PO DAILY ciprofloxacin HCl 500 mg tablet 500 mg PO BID PRN metronidazole 500 mg tablet 500 mg PO BID PRN cholecalciferol (vitamin D3) 50 mcg (2,000 unit) capsule 50 mcg PO DAILY Referrals: Jennifer Hawkins PA-C [Primary Care Provider] - Stand Alone Forms: Patient Portal/API/Survey, Work Release Note
[2024-11-27 18:47] VITALS: BP 134/76; PULSE 61; RESP 16; O2SAT 99
== END 2024-11-27 18:47 | disposition home or self-care (01) ==
PROVIDERS: Emergency Provider Physician Assistant; PCP Physician Assistant
DX: S57.82XA Crushing injury of left forearm, initial encounter (principal); S50.12XA Contusion of left forearm, initial encounter; W23.0XXA Caught, crushed, jammed, or pinched between moving objects, initial encounter; Z85.46 Personal history of malignant neoplasm of prostate
CPT/HCPCS: 73090; 73110; 99283

== ENCOUNTER → 2024-12-18 11:13 | Outpatient (CLI) | payer MEDICARE, OTHER, SELFPAY ==
[2024-12-18 19:17] LABS: Prostate Specific Antigen 0.201 ng/mL (0.10-4.00)
== END ==
PROVIDERS: PCP Physician Assistant; Visit Provider Radiology Radiation Oncology
DX: C61 Malignant neoplasm of prostate (principal)
CPT/HCPCS: 84153

== ENCOUNTER → 2025-02-09 14:59 | Outpatient (CLI) | payer MEDICARE, OTHER, SELFPAY | PROVIDERS: PCP Physician Assistant; Visit Provider Physician Assistant | DX: J02.9 Acute pharyngitis, unspecified (principal) | CPT/HCPCS: 87070 ==

== ENCOUNTER 2025-04-10 12:10 | Emergency (ER) | payer OTHER, SELFPAY ==
[2025-04-10 12:17] VITALS: BP 143/88; PULSE 60; RESP 16; TEMP 37.1; O2SAT 98; BMI 28.8
[2025-04-10 12:23] VITALS: BP 135/78; PULSE 66; RESP 16; O2SAT 98
--- NOTE | 2025-04-10 12:47 | DI.RAD.S_ITS ---
PROCEDURE: XR KNEE LT 3V INDICATIONS: fall TECHNIQUE: 3 views of the knee were acquired. COMPARISON: [facility] ([place]), CR, XR KNEE LT 3V, 08/08/2022, 10:10. FINDINGS: Bones: No fractures or dislocations. No suspicious bony lesions. Soft tissues: Moderate joint effusion. No suspicious soft tissue calcifications. IMPRESSION: Moderate joint effusion. No fracture. Approved by: Max Moore M.D. on 04/10/2025 at 12:34
--- NOTE | 2025-04-10 12:47 | DI.RAD.S_ITS ---
PROCEDURE: XR HIP W PEL IF DONE LT 2V INDICATIONS: fall TECHNIQUE: 2 views of the hip were acquired. COMPARISON: [facility] ([place]), CR, XR HIP W PEL IF DONE RT 2V, 03/04/2024, 15:05. FINDINGS: Bones: No fractures or dislocations. No suspicious bony lesions. The visualized pelvic ring appears intact. Soft tissues: No suspicious soft tissue calcifications or masses. Probable prostate fiducial markers IMPRESSION: No acute bony abnormality. Approved by: Max Moore M.D. on 04/10/2025 at 12:32
[2025-04-10] MEDS: IBUPROFEN 400 MG TABLET PO (13:26)
[2025-04-10] MEDS: OXYCODONE/ACETAMINOPHEN 5/325 TABLET 1 TAB PO (13:26)
--- NOTE | 2025-04-10 14:02 | PC.NURSE ---
Knee immobilizer placed on pt. Pt needs to leave to catch hilaria. aware
--- NOTE | 2025-04-10 14:06 | ED.LOWEXIN ---
HPI - Extremity Injury (Lower) General Chief Complaint: Extremity Injury, Lower Stated Complaint: Fell at work Left side pain Time Seen by Provider: 04/10/25 12:15 Source: patient Mode of arrival: Wheelchair History of Present Illness HPI Narrative: 69-year-old gentleman with a history of hypertension, hyperlipidemia, BPH recently improving after a crush injury at work to the left forearm and has recently returned to work. 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 Related Data Home Medications ?Medication ?Instructions ?Recorded ?Confirmed rosuvastatin 5 mg tablet 5 mg PO DAILY 11/27/22 02/22/25 metronidazole 500 mg tablet 500 mg PO BID PRN 09/18/23 02/22/25 metoprolol succinate 25 mg 25 mg PO DAILY 03/04/24 02/22/25 tablet,extended release 24 hr losartan 50 mg tablet 50 mg PO DAILY 07/15/24 02/22/25 cholecalciferol (vitamin D3) 50 50 mcg PO DAILY 11/05/24 02/22/25 mcg (2,000 unit) capsule Previous Rx's ?Medication ?Instructions ?Recorded tamsulosin 0.4 mg capsule 0.8 mg (2 x 0.4 mg) PO DAILY #180 04/22/24 caps oxycodone-acetaminophen 5 mg-325 1 tab PO Q6H PRN pain #20 tabs 04/10/25 mg tablet Allergies Allergy/AdvReac Type Severity Reaction Status Date / Time amoxicillin (AMOXICILLIN) Allergy Intermediate Verified 04/10/25 12:17 ampicillin Allergy Intermediate Rash Verified 04/10/25 12:17 Penicillins (PENICILLINS) Allergy Intermediate Verified 04/10/25 12:17 munoz pepper AdvReac Unknown Vomiting Verified 04/10/25 12:17 Review of Systems Review of Systems Narrative: Pertinent positive and negative findings as per HPI Patient History Medical History Low vitamin D level Osteopenia Encounter for monitoring androgen deprivation therapy History of external beam radiation therapy Nocturia Prostate cancer Lower urinary tract symptoms Diverticular disease History of asthma Sciatica Gastroesophageal reflux disease Surgical History Hx of vasectomy Hx of circumcision Family History Father Cancer Social History marital status: unmarried,single number of children: 1 alcohol intake: current caffeine: Yes Type(s) of exercise: walking frequency: 3-4 times per week duration: > 90 minutes/day Smoking Status: Never smoker alcohol intake frequency: a few times a month Exam Initial Vital Signs Initial Vital Signs: Vital Signs Temperature 98.8 F 04/10/25 12:17 Pulse Rate 60 04/10/25 12:17 Respiratory Rate 16 04/10/25 12:17 Blood Pressure 143/88 H 04/10/25 12:17 Pulse Oximetry 98 04/10/25 12:17 Oxygen Delivery Method Room Air 04/10/25 12:17 General: Alert appropriate in no acute distress Respiratory: Able to speak in full sentences, no obvious respiratory distress Skin: No obvious rashes, warm and dry Neurologic: Grossly intact no obvious asymmetries or abnormalities Psych: appropriate insight and affect, cooperative Extremity: He has a contusion over his left hip but is able to stand with some pain. His left knee has a mild effusion with minor abrasion. He is tender along the medial and lateral collateral ligaments with some joint line tenderness along the medial aspect. I am not appreciating any laxity in ACL or PCL ligaments. Ankle is unremarkable. He is neurovascularly intact Course Orders Ordered: ED Orders 04/10/25 12:47 XR hip w pel LT 2V Stat XR knee LT 3V Stat Discontinued Medications Ibuprofen (Ibuprofen 400 Mg Tablet) 400 mg PO NOW ONE Stop: 04/10/25 12:50 Last Admin: 04/10/25 13:26 Dose: 400 mg Documented By: Oxycodone/Acetaminophen (Oxycodone/Acetaminophen 5/325 Tablet) 1 tab PO NOW ONE Stop: 04/10/25 12:50 Last Admin: 04/10/25 13:26 Dose: 1 tab Documented By: Vital Signs Vital signs: Vital Signs - 8 hr 04/10/25 12:17 Temperature 98.8 F Pulse Rate 60 Respiratory Rate 16 Blood Pressure 143/88 H Pulse Oximetry 98 Oxygen Delivery Method Room Air MDM - Extremity Injury (Lower) MDM Narrative Medical decision making narrative: 69-year-old gentleman presents after stepping off a forklift at work onto a metal bar, catching his foot the metal bar hitting the side of his knee and then falling onto his left hip. Hip x-ray is unremarkable, he will have a moderate contusion Knee x-ray does show a moderate joint effusion however no obvious fractures or dislocations Treatment: 400 mg of ibuprofen and 1 Percocet Knee immobilizer is placed by nursing staff, tolerated well. Neurovascularly intact pre and post placement L and I forms are filled out along with activity prescription form. I am going to recommend no walking, twisting or turning movements involving the left knee or hip, no climbing stairs or ladders for a week. I am going to recommend that he follow up with an orthopedic surgeon. Current diagnosis is hip contusion, knee sprain. If he is not improving MRI will likely be needed to further evaluate the knee injury. He is safe for discharge home Discharge Plan Departure Patient Disposition: Home Clinical Impression: Fall, Contusion of hip and thigh, Knee strain Instructions: DI for Knee Sprain Activity Restrictions/Additional Instructions: Thank you for coming in today I believe you simply bruised your hip, there was no evidence of a fracture The x-ray of your knee does not show any broken bones. I suspect that you strained it but did not break anything. If you are still having difficulty walking within a week, you need to be re-evaluated and may need additional imaging such as an MRI. I have given you a knee immobilizer to use to help with stability. Using 400 mg of ibuprofen (2 [id number] pills) and 1 Tylenol every 6 hours can be very helpful in controlling pain. For severe pain you can use 400 mg of ibuprofen and 1 Percocet. Percocet is a narcotic, we will cause constipation and should be taken with a stool softener. I have filled out your L and I forms, I have also filled out the activity prescription form. I am recommending modified duty Prescriptions: New oxycodone-acetaminophen 5-325 mg tablet 1 tab PO Q6H PRN (Reason: pain) Qty: 20 0RF No Action tamsulosin 0.4 mg capsule 0.8 mg PO DAILY Qty: 180 3RF rosuvastatin 5 mg tablet 5 mg PO DAILY metoprolol succinate 25 mg tablet extended release 24 hr 25 mg PO DAILY losartan 50 mg tablet 50 mg PO DAILY metronidazole 500 mg tablet 500 mg PO BID PRN cholecalciferol (vitamin D3) 50 mcg (2,000 unit) capsule 50 mcg PO DAILY Referrals: Jennifer Hawkins PA-C [Primary Care Provider, Medical] Stand Alone Forms: Patient Portal/API
[2025-04-10 14:23] VITALS: BP 145/78; PULSE 75; RESP 16
== END 2025-04-10 14:35 | disposition home or self-care (01) ==
PROVIDERS: Emergency Provider Emergency Medicine; PCP Physician Assistant
DX: S86.812A Strain of other muscle(s) and tendon(s) at lower leg level, left leg, initial encounter (principal); S70.02XA Contusion of left hip, initial encounter; S70.12XA Contusion of left thigh, initial encounter; W18.30XA Fall on same level, unspecified, initial encounter; Y93.89 Activity, other specified; Y99.0 Civilian activity done for income or pay
CPT/HCPCS: 73502; 73562; 99283

== ENCOUNTER → 2025-07-05 10:25 | Outpatient (CLI) | payer MEDICARE, OTHER, SELFPAY ==
[2025-07-05 19:44] LABS: Prostate Specific Antigen 0.142 ng/mL (0.10-4.00)
== END ==
PROVIDERS: PCP Physician Assistant; Visit Provider Radiology Radiation Oncology
DX: C61 Malignant neoplasm of prostate (principal)
CPT/HCPCS: 84153

== ENCOUNTER → 2025-08-18 09:57 | Outpatient (CLI) | payer MEDICARE, OTHER, SELFPAY ==
[2025-08-18 19:37] LABS: Prostate Specific Antigen 0.131 ng/mL (0.10-4.00)
== END ==
PROVIDERS: PCP Physician Assistant; Visit Provider Urology
DX: N40.1 Benign prostatic hyperplasia with lower urinary tract symptoms (principal)
CPT/HCPCS: 84153